=== PATIENT | female | born 1970 | race Caucasian/White ===

== ENCOUNTER 2017-09-14 07:26 | Day surgery (SDC) | payer OTHER ==
[2017-09-11 10:22] LABS: BILIRUBIN,URINE NEGATIVE (NEGATIVE); BLOOD, URINE 2+ (NEGATIVE); CLARITY/URINE CLEAR (CLEAR); COLOR,URINE YELLOW (YELLOW); GLUCOSE,URINE NEGATIVE (NEGATIVE); KETONES,URINE NEGATIVE (NEGATIVE); LEUKOCYTE ESTERASE ,URINE NEGATIVE (NEGATIVE); NITRITE, URINE NEGATIVE (NEGATIVE); PROTEIN URINE NEGATIVE (NEGATIVE); UROBILINOGEN,URINE 0.2 (0.2-1.0)
[2017-09-11 10:23] LABS: BASOPHILS # (AUTO) 0.1 K/uL (0.0-0.2); BASOPHILS % (AUTO) 0.8 % (0.0-2.0); EOSINOPHILS # (AUTO) 0.3 K/uL (0.0-0.4); EOSINOPHILS % (AUTO) 3.2 % (0.0-4.0); HEMATOCRIT 41.8 % (36-48); HEMOGLOBIN 14.1 g/dL (12.0-16.0); LYMPHOCYTES # (AUTO) 1.8 K/uL (1.0-5.5); LYMPHOCYTES % (AUTO) 21.1 % (20.5-51.5); MEAN CORPUSCULAR HEMOGLOBIN 32 pg (27-31); MEAN CORPUSCULAR HGB CONC 34 % (32-36); MEAN CORPUSCULAR VOLUME 95 fL (79.0-98.0); MONOCYTES # (AUTO) 0.3 K/uL (0.0-1.0); MONOCYTES % (AUTO) 3.1 % (1.7-9.3); NEUTROPHILS # (AUTO) 5.8 K/uL (1.8-7.7); NEUTROPHILS % (AUTO) 71.8 % (40.0-70.0); PLATELET COUNT (AUTO) 258 K/uL (130-430); WHITE BLOOD COUNT (AUTO) 8.3 K/uL (4.8-10.8)
[2017-09-11 10:24] LABS: HCG,QUAL RESULT NEGATIVE (NEGATIVE)
[2017-09-11 10:39] LABS: PROTHROMBIN TIME 10.6 SECS (9.5-12.5)
[2017-09-11 10:40] LABS: ALBUMIN 4.1 g/dL (3.4-4.8); CALCIUM 9.3 mg/dL (8.4-11.0); CREATININE 0.84 mg/dL (0.55-1.30); POTASSIUM 4.6 mmol/L (3.5-5.1); TOTAL BILIRUBIN 0.7 mg/dL (0.0-1.0)
[2017-09-11 10:55] LABS: BACTERIA,URINE RARE /HPF (None Seen); WBC,URINE 0-3 /HPF (0-3)
[2017-09-11 10:56] LABS: MUCUS,URINE 2+ /LPF (None Seen)
[~2017-09-14] VITALS: Ht 162.6 cm; Wt 61.2 kg
[2017-09-14] MEDS ORDERED: CEFAZOLIN SOD 2 GM in D5W 50 ML IV ONE (08:00)
[2017-09-14] MEDS ORDERED: LR 1,000 ML IV SCH (11:34)
[2017-09-14] MEDS ORDERED: MORPHINE 4 MG/ML INJ. SYRINGE IVP PRN ×3 (11:45)
[2017-09-14] MEDS ORDERED: METOCLOPRAMIDE HCL 10 MG/2 ML VIAL IVP PRN (11:45)
[2017-09-14] MEDS ORDERED: ROCURONIUM BROMIDE 10 MG/ML (ZEMURON) ONE (11:55)
[2017-09-14] MEDS ORDERED: NEOSTIGMINE METHYLSULFATE 1 MG/ML, 10 ML VIAL ONE (11:55)
[2017-09-14] MEDS ORDERED: GLYCOPYRROLATE 0.2 MG/ML VIAL ONE (11:55)
[2017-09-14] MEDS ORDERED: PROPOFOL 200MG/ 20ML VIAL (DIPRIVAN) IV ONE (11:55)
[2017-09-14] MEDS ORDERED: NS 1000 ML BAG IV ONE (11:55)
[2017-09-14] MEDS ORDERED: fentaNYL CITRATE/PF 100 MCG/2 ML AMP ONE (11:55)
[2017-09-14] MEDS ORDERED: SEVOFLURANE 15 MIN GAS INH ONE (11:55)
[2017-09-14] MEDS ORDERED: PHENYLEPHRINE HCL 10 MG/ML VIAL (NEOSYNEPHRINE) ONE (11:55)
[2017-09-14] MEDS ORDERED: LR 1,000 ML IV.SOLN IV ONE (11:55)
[2017-09-14] MEDS ORDERED: MIDAZOLAM HCL 5 MG/ML VIAL (VERSED) IV ONE (11:55)
[2017-09-14] MEDS ORDERED: CEFAZOLIN 2 GM IVPB PREMIX 50 ML IV ONE (11:55)
[2017-09-14 13:10] VITALS: BP_SYST 108
[2017-09-14] MEDS ORDERED: HYDROcodone/ACETAMIN 5-325 MG TAB (NORCO/ VICODIN) PO PRN ×2 (13:45)
[2017-09-14] MEDS ORDERED: PROMETHAZINE HCL 25 MG/ML AMP IM PRN (13:45)
== END 2017-09-14 14:30 | disposition home or self-care (01) ==
LOC: SDS 07:26 → STU 07:27 → SDS 14:30
PROVIDERS: ATTEND Obstetrics & Gynecology Gynecology
DX: N83.8 Other noninflammatory disorders of ovary, fallopian tube and broad ligament (principal); F17.210 Nicotine dependence, cigarettes, uncomplicated
CPT/HCPCS: 36415; 58661; 71046; 80053; 81000; 84703; 85025; 85610; 85730; 86886; 86900; 86901; 88108; 88305; 93005; C1727; J0690 ×2; J2250; J2370; J2704; J2710; J3010; J3490; J7030; J7060; J7120